=== PATIENT | male | born 1950 | race Caucasian/White ===

== ENCOUNTER → 2021-08-11 | Outpatient (CLI) | payer OTHER ==
[~2021-08-11] MED LIST: CO-ENZYME Q-1010 MG PO; CRESTOR5 MG PO; DILTIAZEM ER120 M2 PO; ELIQUIS2.5 MG PO; GLUCOSAMINE CH1 EAC2 PO; PLAVIX 75 MG TA75 MG PO; VITAMIN B COMP1 EAC1 PO; VITAMIN D350 MC3 PO; ZETIA10 MG PO
== END ==
LOC: LAB 05:48
PROVIDERS: ATTEND Student in an Organized Health Care Education/Training Program
DX: Z01.812 Encounter for preprocedural laboratory examination (principal); Z20.822 Contact with and (suspected) exposure to COVID-19

== ENCOUNTER → 2021-08-13 | Outpatient (CLI) | payer OTHER ==
[~2021-08-13] VITALS: Ht 190.5 cm; Wt 104.3 kg
--- NOTE | 2021-08-13 12:23 | P ---
[facility] [place] [address] PROCEDURE REPORT Name: NADEGE ROMAN Room #: REG MAHSA StoreyYuanCarmitaYuan#: [id number] Admission: 08/13/21 Attend Phys: Kalyan Irby Discharge: Date of : 46 Report #: [id number] THIS REPORT FOR: cc: Kevin Escobar MD, John L. MD McElhinney, Christian C. MD ~ cc: Kevin Escobar MD DATE OF SERVICE: 08/13/2021 PROCEDURE PERFORMED: Colonoscopy with polypectomies. HISTORY OF PRESENT ILLNESS: The patient is a 70-year-old male who presents today for screening colonoscopy. Last colonoscopy 10 years ago, reportedly negative. He denies any symptoms, no family history of colon cancer. He is on Eliquis and Plavix for history of AFib. He has been holding this for several days. Plan is for colonoscopy. DESCRIPTION OF PROCEDURE: The risks and benefits of the procedure were explained to the patient, those risks including but not limited to bleeding, perforation and the risk of sedation. He understood these risks and gave informed consent. Sedation was given using propofol per anesthesia. Next, a digital rectal exam was initially performed, which was normal. Next, using a standard Olympus colonoscope, the scope was placed in the patient's anus and advanced under direct vision to the cecum. The overall prep was good. The cecum and ileocecal valve were normal. In the ascending colon, 2 polyps were noted. The smaller one was 4 mm and removed with cold forceps, the larger one was 7 mm and removed by snare cautery. In the transverse colon, a 4 mm sessile polyp was noted, removed with cold forceps. In the descending colon, another 4 mm sessile polyp removed with cold forceps. In the sigmoid colon, multiple diverticula were noted. No evidence of inflammation. Two polyps were also noted in the sigmoid colon. The larger was 7 mm, removed by snare cautery. The smaller was 5 and removed by cold forceps. The rectal mucosa was normal. On retroflexion, small nonbleeding internal hemorrhoids were noted. The scope was then withdrawn and the procedure terminated. The patient tolerated the procedure well. IMPRESSION: 1. Multiple small colonic polyps as described above. 2. Multiple diverticula in the sigmoid colon. 3. Small internal hemorrhoids. 4. Otherwise, normal colonoscopy. RECOMMENDATIONS: 1. Await biopsy results. 2. Repeat colonoscopy in [address] [address] PROCEDURE REPORT Name: NADEGE ROMAN Room #: REG [facility] Geoff#: [id number] Admission: 08/13/21 Attend Phys: Kalyan Irby Discharge: Date of : 46 Report #: [id number] Thank you for allowing me to participate in his care. <ELECTRONICALLY SIGNED> By: Kalyan Marquez MD 08/13/21 1223 [phone] Kalyan Marquez, /ragini
--- NOTE | 2021-08-18 12:06 | PATH ---
[facility] [place] [address] [place] [address] PATHOLOGY RPT PROCEDURE Name: JAMIE ROBERTSON Room #: REG [facility].#: [id number] Admission: 08/13/21 Date of : 46 Discharge: Report #: [id number] Path Case #: [id number] [facility] Accession Number: [id number] . 01 Material submitted: . PART A: colon - ASCENDING COLON POLYP X2. Modifiers: ascending, X2 PART B: colon - TRANSVERSE COLON POLYP. Modifiers: transverse PART C: colon - DESCENDING COLON POLYP. Modifiers: descending PART D: sigmoid colon - SIGMOID COLON POLYP X2. Modifiers: X2 . 01 Clinical history: . COLONOSCOPY FAMILY HISTORY OF POLYPS DIVERTICULOSIS . 01 Diagnosis: A. Colonic mucosa, "ascending colon polyp biopsy x2": - Fragments of tubular adenoma. - There is no evidence of high-grade dysplasia or malignancy. . B. Colonic mucosa, "transverse colon polyp biopsy": - Fragments of tubular adenoma. - There is no evidence of high-grade dysplasia or malignancy. . C. Colonic mucosa, "descending colon polyp": - Hyperplastic polyp. - There is no evidence of adenomatous change, high-grade dysplasia or malignancy. . D. Colonic mucosa, "sigmoid colon polyp x2": - Tubular adenomas. - There is no evidence of high-grade dysplasia or malignancy. . (SHA:waylon; 08/15/2021) MBR 08/15/2021 1151 Local . 01 Electronically signed: . Ilya Durand MD, Pathologist NPI- [id number] . 01 Gross description: . A. The specimen is received in formalin, labeled "Jamie Robertson, ascending colon polyp". Received are 2 segments of pale barney to dark brown tissue measuring 0.4 and 0.6 in maximum dimensions. The surgical margin of the largest segment is inked and the specimen is bisected. The specimen is entirely submitted in cassette A1. . [address] [address] PATHOLOGY RPT PROCEDURE Name: JAMIE ROBERTSON Room #: REG [facility]#: [id number] Admission: 08/13/21 Date of : 46 Discharge: Report #: [id number] Path Case #: [id number] B. The specimen is received in formalin, labeled "Jamie Robertson, transverse colon polyp". Received are 3 segments of pale barney tissue ranging in size from 0.2-0.4 cm in maximum dimensions. The specimen is entirely submitted in cassette B1. . C. The specimen is received in formalin, labeled "Stratemeier, Edward, descending colon polyp". Received is a single segment of pale barney tissue measuring 0.4 cm in maximum dimensions. The specimen is entirely submitted in cassette C1. . D. The specimen is received in formalin, labeled "Stratemeier, Edward, sigmoid colon polyp". Received are 3 segments of pale barney tissue ranging in size from 0.2-0.5 cm in maximum dimensions. The surgical margin of the largest segment is inked and the specimen is bisected. The specimen is entirely submitted in cassette D1. ([facility]; 08/14/2021) NRI/NRI 08/14/2021 180 Local . 01 Pathologist provided ICD-10: D12.2, D12.3, D12.5, K63.5 . 01 CPT . 343236, 444738, 160839, [id number] Specimen Comment: A courtesy copy of this report has been sent to [phone], [phone]- Specimen Comment: [id number] Specimen Comment: Report sent to / DR SOARES Specimen Comment: A duplicate report has been generated due to demographic updates. Performed at: [address], [place] [id number] MD Ilya Durand MD Phone: [phone]
== END | disposition home or self-care (01) ==
LOC: GI
PROVIDERS: ATTEND Specialist
DX: Z12.11 Encounter for screening for malignant neoplasm of colon (principal); Z83.71 Family history of colonic polyps; D12.2 Benign neoplasm of ascending colon; D12.3 Benign neoplasm of transverse colon; D12.5 Benign neoplasm of sigmoid colon; K57.30 Diverticulosis of large intestine without perforation or abscess without bleeding; K64.8 Other hemorrhoids; I10 Essential (primary) hypertension; E78.5 Hyperlipidemia, unspecified; Z98.890 Other specified postprocedural states; Z79.899 Other long term (current) drug therapy; Z90.49 Acquired absence of other specified parts of digestive tract
CPT/HCPCS: 62110; 62900